=== PATIENT | male | born 1945 | race Asian ===

== ENCOUNTER 2016-08-27 07:05 | Inpatient (IN) | payer BC ==
[2016-08-27] MEDS ORDERED: PROPOFOL 100 ML ONE (07:23)
--- NOTE | 2016-08-27 07:27 | PDOC ---
History of Present Illness - General Chief Complaint: Cardiac Arrest Stated Complaint: CARDIAC ARREST Time Seen by Provider: 08/27/16 07:16 Past History - Past Medical History Allergies/Adverse Reactions: Allergies Allergy/AdvReac Type Severity Reaction Status Date / Time No Known Drug Allergies Allergy Verified 07/24/13 05:55 Home Medications: Ambulatory Orders Amlodipine Besylate [Norvasc -] 5 mg PO BID 07/22/13 Zolpidem Tartrate [Ambien] 10 mg PO HS 07/22/13 Insulin (Levemir) [Levemir Vial -] 16 unit SQ ACBK 05/24/15 Oxycodone HCl/Acetaminophen [Percocet 5-325 mg Tablet] 1 tab PO Q6H 05/24/15 Risperidone [Risperdal -] 0.25 mg PO HS 05/24/15 Lisinopril 10 mg PO DAILY 05/25/15 Pravastatin Sodium [Pravachol -] 40 mg PO DAILY 05/25/15 Repaglinide [Prandin] 1 mg PO AC 05/25/15 Aspirin Coated [Ecotrin -] 81 mg PO DAILY #30 tablet.ec 05/27/15 Carvedilol [Coreg -] 6.25 mg PO BID #0 05/27/15 Glimepiride [Amaryl -] 2 mg PO DAILY #0 05/27/15 Pantoprazole Sodium [Protonix -] 40 mg PO DAILY #0 05/27/15 Diabetes: Yes GI Disorders: Yes (GERD, GI bleed) HTN: Yes - Surgical History Abdominal Surgery: Yes (gastrectomy) - Psycho/Social/Smoking Cessation Hx Anxiety: No Suicidal Ideation: No Smoking History: Never smoked Have you smoked in the past 12 months: No Hx Alcohol Use: No Substance Use Type: None *Physical Exam - Vital Signs Last Vital Signs Temp Pulse Resp BP Pulse Ox 60 13 91 L 08/27/16 07:05 08/27/16 07:05 08/27/16 07:05
[2016-08-27] MEDS ORDERED: PROPOFOL 200 MG/20 ML VIAL IVPUSH ONE (07:36)
[2016-08-27] MEDS ORDERED: PROPOFOL 100 ML IVPB SCH (07:45)
[2016-08-27 07:46] LABS: ARTERIAL BLD GAS O2 SATURATION 99.7 % (90-98.9); ARTERIAL BLOOD GAS BASE EXCESS -5.6 meq/l (-2-2); ARTERIAL BLOOD GAS HCO3 17.5 meq/L (22-26); ARTERIAL BLOOD GAS pH 7.41 (7.35-7.45)
--- NOTE | 2016-08-27 07:46 | PDOC ---
History of Present Illness - General History Source: EMS, Family, Spouse Exam Limitations: Intubated <Steffi Lopez - Last Filed: 08/27/16 11:45> <Barbra Montiel - Last Filed: 08/27/16 12:17> - General Chief Complaint: Cardiac Arrest Stated Complaint: CARDIAC ARREST Time Seen by Provider: 08/27/16 07:16 Past History - Past Medical History Diabetes: Yes GI Disorders: Yes (GERD, GI bleed) HTN: Yes - Surgical History Abdominal Surgery: Yes (gastrectomy) - Psycho/Social/Smoking Cessation Hx Anxiety: No Suicidal Ideation: No Smoking History: Never smoked Have you smoked in the past 12 months: No Hx Alcohol Use: No Substance Use Type: None <Steffi Lopez Last Filed: 08/27/16 11:45> <Barbra Montiel - Last Filed: 08/27/16 12:17> - Past Medical History Allergies/Adverse Reactions: Allergies Allergy/AdvReac Type Severity Reaction Status Date / Time No Known Drug Allergies Allergy Verified 07/24/13 05:55 Home Medications: Ambulatory Orders Oxycodone HCl/Acetaminophen [Percocet 5-325 mg Tablet] 1 tab PO Q6H 05/24/15 Pantoprazole Sodium [Protonix -] 40 mg PO DAILY #0 05/27/15 Carvedilol [Coreg -] 12.5 mg PO BID 08/27/16 Insulin Lispro [Humalog] 1 - 2 unit SQ ASDIR 08/27/16 Prednisone [Deltasone -] 20 mg PO DAILY 08/27/16 Review of Systems - Review of Systems Able to Perform ROS?: No (pt intubated) <Steffi Lopez Last Filed: 08/27/16 11:45> *Physical Exam - Physical Exam HEENT: negative: Scleral Icterus (R), Scleral Icterus (L) Respiratory/Chest: positive: Lungs Clear, Normal Breath Sounds Cardiovascular: positive: Regular Rate, S1, S2 Gastrointestinal/Abdominal: positive: Soft. negative: Distended, Mass Extremity: positive: Other (s/p L BKA) Integumentary: positive: Dry, Warm <Tanika LopezVanessa Last Filed: 08/27/16 11:45> - Vital Signs Last Vital Signs Temp Pulse Resp BP Pulse Ox 96.0 F L 63 12 108/67 100 08/27/16 11:21 08/27/16 11:21 08/27/16 11:21 08/27/16 11:21 08/27/16 11:21 ED Treatment Course - LABORATORY CBC & Chemistry Diagram: 08/27/16 08:20 08/27/16 07:30 <Steffi Lopez - Last Filed: 08/27/16 11:45> - LABORATORY CBC & Chemistry Diagram: 08/27/16 08:20 08/27/16 07:30 <Barbra Montiel - Last Filed: 08/27/16 12:17> - ADDITIONAL ORDERS Additional order review: Laboratory Results 08/27/16 08/27/16 08/27/16 07:42 07:30 07:30 INR PTT (Actin FS) Puncture Site Right radial ABG pH 7.41 ABG pCO2 at Pt Temp 28.0 L ABG pO2 at Pt Temp 538.0 H* ABG HCO3 17.5 L ABG O2 Sat (Measured) 99.7 H* ABG O2 Content 15.4 ABG Base Excess -5.6 L Nico Test Positive O2 Delivery Device Vent Oxygen Flow Rate 100% Vent Mode A/c Vent Rate 12 Mechanical Rate Yes PEEP 5.0 Pressure Support Vent 350 Sodium 132 L Potassium 4.6 Chloride 99 Carbon Dioxide 21 Anion Gap 12 BUN 77 H D Creatinine 1.9 H Creat Clearance w eGFR 35.02 POC Glucometer Random Glucose 179 H D Lactic Acid Calcium 8.0 L Total Bilirubin 0.7 D AST 224 H D ALT 219 H D Alkaline Phosphatase 173 H D Creatine Kinase 1895 H D Creatine Kinase Index 1.3 CK-MB (CK-2) 24.905 H Troponin I 0.04 D B-Natriuretic Peptide Cancelled 32859.76 H Total Protein 6.3 L Albumin 2.8 L Lipase 74 08/27/16 08/27/16 08/27/16 07:30 07:30 07:12 INR 1.28 H PTT (Actin FS) 31.9 Puncture Site ABG pH ABG pCO2 at Pt Temp ABG pO2 at Pt Temp ABG HCO3 ABG O2 Sat (Measured) ABG O2 Content ABG Base Excess Nico Test O2 Delivery Device Oxygen Flow Rate Vent Mode Vent Rate Mechanical Rate PEEP Pressure Support Vent Sodium Potassium Chloride Carbon Dioxide Anion Gap BUN Creatinine Creat Clearance w eGFR POC Glucometer 130.42633 Random Glucose Lactic Acid 1.175 Calcium Total Bilirubin AST ALT Alkaline Phosphatase Creatine Kinase Creatine Kinase Index CK-MB (CK-2) Troponin I B-Natriuretic Peptide Total Protein Albumin Lipase 08/27/16 08/27/16 08/27/16 08:20 07:30 07:12 RBC 4.49 4.61 D MCV 75.2 L 73.9 L MCHC 30.5 L 31.8 L RDW 16.9 H 17.0 H D MPV 10.6 D 7.3 L D Neutrophils % Y 58.0 Lymphocytes % Y 22.0 D Monocytes % 6.0 POC Glucometer 130.86537 - Medications Given in the ED: ED Medications Discontinued Medications Generic Name Dose Route Start Last Admin Trade Name Freq PRN Reason Stop Dose Admin Fentanyl 100 mcg 08/27/16 07:46 08/27/16 07:55 Sublimaze Injection - IVPUSH 08/27/16 07:47 100 mcg ONCE ONE Administration Vancomycin HCl 1,000 mg/ 250 mls @ 250 mls/hr 08/27/16 08:25 08/27/16 09:08 Dextrose IVPB 08/27/16 09:24 250 mls/hr ONCE ONE Administration Protocol Pantoprazole Sodium 40 mg/ 100 mls @ 200 mls/hr 08/27/16 10:45 08/27/16 11:10 Sodium Chloride IVPB 200 mls/hr DAILY ALEXEI Administration Piperacillin Sod/Tazobactam Sod 3.375 gm 08/27/16 08:26 08/27/16 08:38 Zosyn 3.375gm Ivpb (Pre-Docked) IV 08/27/16 08:27 3.375 gm ONCE ONE Administration Protocol Propofol 40,000 mcg 08/27/16 07:36 08/27/16 07:24 Diprivan - IVPUSH 08/27/16 07:37 40,000 mcg ONCE ONE Administration Medical Decision Making <Steffi Lopez - Last Filed: 08/27/16 11:45> <Barbra Montiel - Last Filed: 08/27/16 12:17> - Medical Decision Making 08/27/16 07:38 71-year-old male, history of hypertension, diabetes, CHF, BIB EMS for cardiac arrest w/ intubation in the field. reports that patient appeared well when he went to bed at midnight but around 6am today when went to check on pt, pt felt cold to the touch and was unresponsive. At that point, called EMS. As per EMT, PEA on cardiac rhythm, was able to get pulse after CPR only, no meds given. Patient currently intubated. Family reports that patient was admitted to [facility] approximately 07/22 and discharged 2 weeks agofor pericardial effusion, status post pericardial window. Patient was started on Lasix upon discharge, but meds since discontinued by PMD 3 days ago, as MD thought patient was on too many medications as per family. states since pt has been discharged from [facility], has been weak and anorexic. See exam S/p cardiac arrest w/ PEA on rhythm, s/p ROSC w/ CPR in field, currently intubated w/ respiratory team at bedside Sating 91% on monitor w/ BP of 179/118 EKG w/ NSR w/ LVH Bedside US performed w/ Dr Lara demonstrating good cardiac activity w/ no s/o pericardial effusion -ekg/cxr/labs/echo to evaluate cause of arrest -admit to ICU, no pmd/cards on staff 08/27/16 08:10 Propofol started in ED secondary to patient waking up but was discontinued as pressure dropped to 80s over 60s, but improved approximately 5 minutes after bolus was given. Will switch to fentanyl drip as per ED attending 08/27/16 08:12 08/27/16 08:35 08/27/16 09:47 Elevated LFTs w/ plt of 14, new based on old labs. Possibly 2/2 shock. BNP >19K , trop neg. Will c/w cards and contact unit/hospitalist for admission. Will contact [facility] [place] for record from recent admission 08/27/16 10:03 Contacted [facility] and spoke to PA in ED who reported that pt was admitted for pericardial effusion on 07/21, s/p pericardial window, w/ no e/o malignancy or infection on fluid analysis. LFTs including platelets were wnl. Cr was 2. Was discharged 08/13 on prednisone, colchicine and lasix. of note, pt's lasix was discontinued 3 days ago by outside PMD in the B[facility] 08/27/16 10:21 Pt admitted to the unit and case d/w Dr Castro who recommends holding off on lasix currently 08/27/16 10:22 08/27/16 11:45 As per ED attg, pt appears to bear down w/ palpation of abd, rec CT a/p 08/27/16 11:47 (Steffi Lopez) *DC/Admit/Observation/Transfer - Discharge Dispostion Admit: Yes <Steffi Lopez - Last Filed: 08/27/16 11:45> <Barbra Montiel - Last Filed: 08/27/16 12:17> Diagnosis at time of Disposition: Cardiac arrest, Transaminitis, Acute kidney injury CHF (congestive heart failure) Qualifiers: Congestive heart failure type: unspecified congestive heart failure type Congestive heart failure chronicity: unspecified congestive heart failure chronicity Qualified Code(s): I50.9 - Heart failure, unspecified - Discharge Dispostion Condition at time of disposition: Guarded - Referrals - Attestations Physician Attestion: I independently examined and evaluated this patient in conjunction with NABILA Lopez , mid-level practitioner. I reviewed the case and agree with the mid-level practitioner's assessment, diagnosis and disposition. Patient brought in by EMS s/p cardiac arrest with ROSC. History of recent pericardial window at [facility], no prior cardiac history. Initial VS with hypertension, hypothermia. Initially coughing on the vent. Went hypotensive with initial bolus of propofol, so the sedation was changed to fentanyl with improvement in BP. Lungs clear B/L (intubated by EMS). Unable to assess for abdominal tenderness, but patient appears to be guarding. Labs show transaminitis, likely due to cardiac arrest. BNP elevated. CXR with ETT in place. (Barbra Montiel)
[2016-08-27 07:47] LABS: ALLENS TEST POSITIVE; ART PUNCT SITE RIGHT RADIAL; LPM/O2% 100%; MECH. VENT. YES; PT. ON O2? YES; TYPE OF O2 VENT; VENT RATE 12; VT/PRESS 350
[2016-08-27] MEDS: FENTANYL INJECTION 500 MCG in DEXTROSE 5%-WATER - 90 ML IJ SCH ×3 (07:56→14:41)
[2016-08-27 08:15] LABS: INR 1.28 (0.82-1.09); PROTHROMBIN TIME (PATIENT) 14.1 SEC (9.98-11.88)
[2016-08-27 08:17] LABS: MCH 23.5 pg (25.7-33.7); MCHC 31.8 g/dl (32.0-35.9); MEAN CELL VOLUME 73.9 fl (80-96); MEAN PLT VOLUME 7.3 fl (7.5-11.1); WHITE BLOOD COUNT 2.6 K/mm3 (4.0-10.0)
[2016-08-27 08:18] LABS: ACTIVATED PTT 31.9 SECONDS (26.9-34.4)
[2016-08-27] MEDS ORDERED: VANCOMYCIN 1,000 MG in DEXTROSE 5%-WATER - 250 ML IVPB ONE (08:25)
[2016-08-27] MEDS ORDERED: PIPERACILLIN/TAZOB 3.375 GM/50 ML PRE-DOCKED IV ONE (08:26)
[2016-08-27 08:29] LABS: PLATELET COUNT 14 K/MM3 (134-434)
[2016-08-27] MEDS ORDERED: VANCOMYCIN 1 GRAM (PRE-DOCKED) 250 ML IVPB ONE (08:38)
[2016-08-27] MEDS ORDERED: PIPERACILLIN/TAZOB 3.375 GM 50 ML IVPB ONE (08:38)
[2016-08-27 08:47] LABS: ALBUMIN 2.8 g/dl (3.4-5.0); BILIRUBIN,TOTAL 0.7 mg/dL (0.2-1.0); CREATININE 1.9 mg/dL (0.7-1.3); TOT PROT 6.3 g/dl (6.4-8.2)
[2016-08-27 09:00] LABS: MCHC 30.5 g/dl (32.0-35.9); MEAN CELL VOLUME 75.2 fl (80-96); MEAN PLT VOLUME 10.6 fl (7.5-11.1); RDW 16.9 % (11.9-15.9); WHITE BLOOD COUNT 2.3 K/mm3 (4.0-10.0)
[2016-08-27 09:03] LABS: PLATELET COUNT 16 K/MM3 (134-434)
[2016-08-27 09:23] LABS: TROPONIN I 0.04 ng/ml (0.00-0.05)
--- NOTE | 2016-08-27 10:44 | HP ---
PCP: Oni Russell CHIEF COMPLAINT: Unresponsive HISTORY OF PRESENT ILLNESS: This is a 71-year-old man who was brought in to the ER after his found him unresponsive. She reported that he appeared well last night around midnight. This morning around 6am, he was unresponsive and cold. When EMS arrived, he was noted to have PEA. CPR was started, he was intubated, and his pulse returned. He had been admitted at [facility] on 07/21/16 with a pericardial effusion. He underwent pericardial window and there was no evidence of malignancy or infection. He was discharged on 08/13/16 on prednisone, Colchicine and Lasix. He has been weak and not eating well since discharge. Lasix was discontinued 3 days ago by his PCP. PAST MEDICAL HISTORY Hypertension Type 2 diabetes mellitus Kidney stones Pericardial effusion PAST SURGICAL HISTORY Left BKA Stomach surgery secondary to GI bleed Pericardial window Allergies No Known Drug Allergies Allergy (Verified 07/24/13 05:55) HOME MEDICATIONS 3 Medication Instructions Recorded Oxycodone HCl/Acetaminophen 1 tab PO Q6H 05/24/15 [Percocet 5-325 mg Tablet] Pantoprazole Sodium [Protonix -] 40 mg PO DAILY #0 05/27/15 Carvedilol [Coreg -] 12.5 mg PO BID 08/27/16 Insulin Lispro [Humalog] 1 - 2 unit SQ ASDIR 08/27/16 Prednisone [Deltasone -] 20 mg PO DAILY 08/27/16 Social History: Smoking: No Alcohol: No Drugs: No Recent Travel: No Family History: (+) diabetes REVIEW OF SYSTEMS Unable to obtain PHYSICAL EXAMINATION Vital Signs - 24 hr 08/27/16 08/27/16 08/27/16 07:05 07:10 07:20 Temperature 93.6 F L Pulse Rate 63 Pulse Rate [ 59 L 61 Apical] Respiratory 12 12 12 Rate Blood Pressure 171/94 Blood Pressure 93/68 87/67 [Right Arm] O2 Sat by Pulse 100 100 100 Oximetry (%) 08/27/16 08/27/16 08/27/16 07:30 07:50 07:54 Temperature Pulse Rate Pulse Rate [ 56 L 61 Apical] Respiratory 12 12 22 Rate Blood Pressure Blood Pressure 74/67 117/88 [Right Arm] O2 Sat by Pulse 100 100 Oximetry (%) 03/25/17 03/25/17 03/25/17 07:55 08:00 08:30 Temperature Pulse Rate 65 Pulse Rate [ 63 55 L Apical] Respiratory 12 12 Rate Blood Pressure Blood Pressure 152/95 81/58 [Right Arm] O2 Sat by Pulse 100 100 100 Oximetry (%) 08/27/16 08/27/16 08/27/16 09:00 09:16 09:17 Temperature 93.8 F L Pulse Rate Pulse Rate [ 57 L 58 L Apical] Respiratory 12 12 18 Rate Blood Pressure Blood Pressure 108/70 100/70 [Right Arm] O2 Sat by Pulse 100 100 Oximetry (%) 08/27/16 08/27/16 08/27/16 09:37 09:53 10:11 Temperature Pulse Rate Pulse Rate [ 57 L 56 L 56 L Apical] Respiratory 12 12 12 Rate Blood Pressure Blood Pressure 95/66 95/67 94/66 [Right Arm] O2 Sat by Pulse 100 100 100 Oximetry (%) 08/27/16 08/27/16 10:12 10:37 Temperature 94.0 F L Pulse Rate Pulse Rate [ 60 59 L Apical] Respiratory 12 12 Rate Blood Pressure Blood Pressure 110/70 90/63 [Right Arm] O2 Sat by Pulse 100 100 Oximetry (%) GENERAL: Awake, intubated, in no acute distress. HEAD: Normal with no signs of trauma. EYES: Pupils equal, round and reactive to light, sclerae anicteric, conjunctivae clear. EARS, NOSE, THROAT: Ears normal, nares patent, oropharynx clear without exudates. Moist mucous membranes. NECK: Normal range of motion, supple without lymphadenopathy, JVD, or masses. LUNGS: Breath sounds equal, clear to auscultation bilaterally. No wheezes, and no crackles. HEART: Regular rate and rhythm, normal S1 and S2 without murmur, rub or gallop. ABDOMEN: Soft, winces with palpation, not distended, normoactive bowel sounds, no masses, no hepatomegaly, no splenomegaly. MUSCULOSKELETAL: Normal passive range of motion at all joints. s/p left BKA. UPPER EXTREMITIES: 2+ pulses, warm, well-perfused. No cyanosis. No clubbing. No peripheral edema. LOWER EXTREMITIES: 2+ pulses, warm, well-perfused. No calf tenderness. No peripheral edema. s/p left BKA. NEUROLOGICAL: Unable to assess. PSYCHIATRIC: Unable to assess. SKIN: Warm, dry, normal turgor, no rashes or lesions noted, normal capillary refill. Laboratory Results - last 24 hr 08/27/16 08/27/16 08/27/16 07:12 07:30 07:30 WBC 2.6 L D RBC 4.61 D Hgb 10.9 L Hct 34.1 L MCV 73.9 L MCHC 31.8 L RDW 17.0 H D Plt Count 14 L* D MPV 7.3 L D Neutrophils % Y Lymphocytes % Y INR PTT (Actin FS) Puncture Site ABG pH ABG pCO2 at Pt Temp ABG pO2 at Pt Temp ABG HCO3 ABG O2 Sat (Measured) ABG O2 Content ABG Base Excess Nico Test O2 Delivery Device Oxygen Flow Rate Vent Mode Vent Rate Mechanical Rate PEEP Pressure Support Vent Sodium Potassium Chloride Carbon Dioxide Anion Gap BUN Creatinine Creat Clearance w eGFR POC Glucometer 130.04054 Random Glucose Lactic Acid 1.175 Calcium Total Bilirubin AST ALT Alkaline Phosphatase Creatine Kinase Creatine Kinase Index CK-MB (CK-2) Troponin I B-Natriuretic Peptide Total Protein Albumin Lipase 08/27/16 08/27/16 08/27/16 07:30 07:30 07:30 WBC RBC Hgb Hct MCV MCHC RDW Plt Count MPV Neutrophils % Lymphocytes % INR 1.28 H PTT (Actin FS) 31.9 Puncture Site ABG pH ABG pCO2 at Pt Temp ABG pO2 at Pt Temp ABG HCO3 ABG O2 Sat (Measured) ABG O2 Content ABG Base Excess Nico Test O2 Delivery Device Oxygen Flow Rate Vent Mode Vent Rate Mechanical Rate PEEP Pressure Support Vent Sodium 132 L Potassium 4.6 Chloride 99 Carbon Dioxide 21 Anion Gap 12 BUN 77 H D Creatinine 1.9 H Creat Clearance w eGFR 35.02 POC Glucometer Random Glucose 179 H D Lactic Acid Calcium 8.0 L Total Bilirubin 0.7 D AST 224 H D ALT 219 H D Alkaline Phosphatase 173 H D Creatine Kinase 1895 H D Creatine Kinase Index 1.3 CK-MB (CK-2) 24.905 H Troponin I 0.04 D B-Natriuretic Peptide 66119.76 H Cancelled Total Protein 6.3 L Albumin 2.8 L Lipase 74 08/27/16 08/27/16 07:42 08:20 WBC 2.3 L RBC 4.49 Hgb 10.3 L Hct 33.7 L MCV 75.2 L MCHC 30.5 L RDW 16.9 H Plt Count 16 L* MPV 10.6 D Neutrophils % Y Lymphocytes % Y INR PTT (Actin FS) Puncture Site Right radial ABG pH 7.41 ABG pCO2 at Pt Temp 28.0 L ABG pO2 at Pt Temp 538.0 H* ABG HCO3 17.5 L ABG O2 Sat (Measured) 99.7 H* ABG O2 Content 15.4 ABG Base Excess -5.6 L Nico Test Positive O2 Delivery Device Vent Oxygen Flow Rate 100% Vent Mode A/c Vent Rate 12 Mechanical Rate Yes PEEP 5.0 Pressure Support Vent 350 Sodium Potassium Chloride Carbon Dioxide Anion Gap BUN Creatinine Creat Clearance w eGFR POC Glucometer Random Glucose Lactic Acid Calcium Total Bilirubin AST ALT Alkaline Phosphatase Creatine Kinase Creatine Kinase Index CK-MB (CK-2) Troponin I B-Natriuretic Peptide Total Protein Albumin Lipase Chest x-ray: ET tube in plce. Lungs clear. EKG: Sinus rhythm, LVH, no ischemic changes. ASSESSMENT/PLAN: This is a 71-year-old man with a history of HTN, type 2 DM, stage 3 CKD, recent pericardial window for pericardial effusion who presents to the ER after being found unresponsive and cold in his bed. EMS found him in PEA and CPR was started and he was intubated. He is awake on the vent. He has been hypotensive, temp was 93.6. He was found to have WBC 2.6, Hgb 10.9, platelets 14, lactic acid 1.175, Na 132, BUN 77, creatinine 1.9, AST 224, ALT 219, alk phos 173, CK 1895, CK-MB 24.9, troponin 0.04, BNP 22912. He is being admitted now for treatment of an emergent condition. 1. Cardiac arrest with hypotension and hypothermia, possible sepsis - Admit to ICU - Zosyn, Vancomycin given in ER - IV fluid - Blood and urine cultures - Hold Coreg, Lasix - Serial CK, troponin - Echocardiogram - Cardiology, critical care consults 2. Acute hypoxic respiratory failure - Maintain vent support - Pulmonary/critical care consult 3. Pancytopenia - Possibly secondary to sepsis - Consider malignancy given recent pericardial effusion - Monitor CBC 4. Hepatic transaminitis and abdominal tenderness - Possibly secondary to sepsis, biliary disease - CT abdomen and pelvis - Monitor LFTs 5. Hypertension - Hold Coreg, Lasix secondary to hypotension 6. Type 2 diabetes mellitus - Monitor fingersticks 7. Recent pericardial effusion, s/p pericardial window 8. Stage 3 CKD - Creatinine stable Visit type - Emergency Visit Emergency Visit: Yes ED Registration Date: 08/27/16 Care time: The patient presented to the Emergency Department on the above date and was hospitalized for further evaluation of their emergent condition. - New Patient This patient is new to me today: Yes Date on this admission: 08/27/16 - Critical Care Critical Care patient: Yes Total Critical Care Time (in minutes): 60 Critical Care Statement: The care of this patient involved high complexity decision making to prevent further life threatening deterioration of the patient 's condition and/or to evalute & treat vital organ system(s) failure or risk of failure.
[2016-08-27] MEDS ORDERED: PANTOPRAZOLE SODIUM 40 MG in SODIUM CHLORIDE 100 ML IVPB SCH (10:45)
[2016-08-27] MEDS ORDERED: ONDANSETRON 4 MG/2 ML VIAL IVPB PRN (10:45)
[2016-08-27] MEDS ORDERED: ACETAMINOPHEN 650 MG SUPP.RECT PR PRN (10:45)
[2016-08-27 10:53] LABS: PLATELET COMMENT2 NO CLOTTING DETECTED; PLATELET ESTIMATE MARKEDLY DECREASED (NORMAL)
[2016-08-27 10:54] LABS: ANISOCYTOSIS 2+; HYPOCHROMIA 1+; MICROCYTOSIS 1+; POIKILOCYTOSIS 1+; POLYCHROMASIA 1+
[2016-08-27] MEDS ORDERED: PANTOPRAZOLE SODIUM 100 ML IVPB ONE (11:05)
[2016-08-27 11:14] VITALS: BMI 22.1
[2016-08-27] MEDS ORDERED: PNEUMOC 13-VAL CONJ-DIP CRM/PF 0.5 ML DISP.SYRIN IM ONE (11:14)
[2016-08-27] MEDS ORDERED: PANTOPRAZOLE SODIUM 100 ML IVPB SCH (11:36)
[2016-08-27] MEDS ORDERED: SODIUM CHLORIDE 500 ML IV STA (12:19)
[2016-08-27] MEDS ORDERED: SODIUM CHLORIDE 1,000 ML IV STA (12:30)
[2016-08-27] MEDS ORDERED: LIDOCAINE HCL 2% JELLY 10 ML CARTRIDGE ONE (14:39)
[2016-08-27 14:40] VITALS: TEMP 99
[2016-08-27 14:56] VITALS: BP 130/79
--- NOTE | 2016-08-27 15:02 | CON.CARD ---
Consult Consult Specialty:: Cardiology Referred by:: Hospitalist Reason for Consultation:: Cardiac evaluation - History of Present Illness Chief Complaint: Post cardiac arrest (PEA) History of Present Illness: Patient is a 71 year old [place] gentleman with underlying history of diabetes mellitus, HTN, PAD status post left BKA, recent hospitalization at [facility] with pericardia effusion for which he had pericardial window and was discharged on 08/13/16 on Prednisone, Colchicine and Lasix. He was seen by his early this morning unresponsive. He was seen at midnight last night and appeared his usual self with weakness. He was found cold and unresponsive this morning and EMS was called. Upon arrival, he was found to be in PEA. CPR was started and patient was intubated. He regained his pulse and was brought to ED for further evaluation. His does not report any complaints of chest pain , shortness of breath or palpitations. She does not report her having fever or chills, but she states that he complained of abdominal discomfort intermittently. He is being admitted to ICU for further management. Blood work reveals low WBC and significant thrombocytopenia and abnormal LFTs His PCP is Dr. Russell in [place] - History Source History Provided By: Family Member Limitations to Obtaining History: Intubated - Past Medical History Cardio/Vascular: Yes: HTN Gastrointestinal: Yes: GI Bleed Endocrine: Yes: Diabetes Mellitus - Past Surgical History Past Surgical History: Yes: Amputation, Hernia Repair Additional Surgical History: GI surgery due to bleed many years ago - Alcohol/Substance Use Hx Alcohol Use: Yes (in the past) History of Substance Use: reports: None - Smoking History Smoking history: Former smoker Have you smoked in the past 12 months: No Home Medications - Allergies Allergies/Adverse Reactions: Allergies Allergy/AdvReac Type Severity Reaction Status Date / Time No Known Drug Allergies Allergy Verified 07/24/13 05:55 - Home Medications Home Medications: Ambulatory Orders Oxycodone HCl/Acetaminophen [Percocet 5-325 mg Tablet] 1 tab PO Q6H 05/24/15 Pantoprazole Sodium [Protonix -] 40 mg PO DAILY #0 05/27/15 Carvedilol [Coreg -] 12.5 mg PO BID 08/27/16 Insulin Lispro [Humalog] 1 - 2 unit SQ ASDIR 08/27/16 Prednisone [Deltasone -] 20 mg PO DAILY 08/27/16 Family Disease History - Family Disease History Family Disease History: Diabetes: Father, Mother Review of Systems Unable to obtain ROS, reason: Unable to obtain Vital Signs: Vital Signs Temperature 99.0 F 08/27/16 14:40 Pulse Rate 72 08/27/16 14:44 Respiratory Rate 12 08/27/16 14:44 Blood Pressure 117/64 08/27/16 14:44 O2 Sat by Pulse Oximetry (%) 100 08/27/16 14:44 Respiratory: Yes: Diminished Gastrointestinal: Yes: Normal Bowel Sounds, Soft, Tenderness (Possible) Cardiovascular: Yes: Regular Rate and Rhythm JVD: No Carotid Bruit: No PMI: Non-Displaced Heart Sounds: Yes: S1, S2 Extremities: Yes: Amputation Edema: No - Other Data Labs, Other Data: INR, PTT INR 1.28 (0.82-1.09) H 08/27/16 07:30 Laboratory Results - last 24 hr 08/27/16 08/27/16 08/27/16 07:12 07:30 07:30 WBC 2.6 L D RBC 4.61 D Hgb 10.9 L Hct 34.1 L MCV 73.9 L MCHC 31.8 L RDW 17.0 H D Plt Count 14 L* D MPV 7.3 L D Neutrophils % 58.0 Lymphocytes % 22.0 D Monocytes % 6.0 Band Neutrophils 4.0 D Platelet Estimate Markedly decreased Platelet Comment No clotting detected Polychromasia 1+ Hypochromic-Microcytic 1+ Poikilocytosis 1+ Anisocytosis 2+ Microcytosis 1+ Macrocytosis 2+ INR PTT (Actin FS) Puncture Site ABG pH ABG pCO2 at Pt Temp ABG pO2 at Pt Temp ABG HCO3 ABG O2 Sat (Measured) ABG O2 Content ABG Base Excess Nico Test O2 Delivery Device Oxygen Flow Rate Vent Mode Vent Rate Mechanical Rate PEEP Pressure Support Vent Sodium Potassium Chloride Carbon Dioxide Anion Gap BUN Creatinine Creat Clearance w eGFR POC Glucometer 130.36590 Random Glucose Lactic Acid 1.175 Calcium Total Bilirubin AST ALT Alkaline Phosphatase Creatine Kinase Creatine Kinase Index CK-MB (CK-2) Troponin I B-Natriuretic Peptide Total Protein Albumin Lipase 08/27/16 08/27/16 08/27/16 07:30 07:30 07:30 WBC RBC Hgb Hct MCV MCHC RDW Plt Count MPV Neutrophils % Lymphocytes % Monocytes % Band Neutrophils Platelet Estimate Platelet Comment Polychromasia Hypochromic-Microcytic Poikilocytosis Anisocytosis Microcytosis Macrocytosis INR 1.28 H PTT (Actin FS) 31.9 Puncture Site ABG pH ABG pCO2 at Pt Temp ABG pO2 at Pt Temp ABG HCO3 ABG O2 Sat (Measured) ABG O2 Content ABG Base Excess Nico Test O2 Delivery Device Oxygen Flow Rate Vent Mode Vent Rate Mechanical Rate PEEP Pressure Support Vent Sodium 132 L Potassium 4.6 Chloride 99 Carbon Dioxide 21 Anion Gap 12 BUN 77 H D Creatinine 1.9 H Creat Clearance w eGFR 35.02 POC Glucometer Random Glucose 179 H D Lactic Acid Calcium 8.0 L Total Bilirubin 0.7 D AST 224 H D ALT 219 H D Alkaline Phosphatase 173 H D Creatine Kinase 1895 H D Creatine Kinase Index 1.3 CK-MB (CK-2) 24.905 H Troponin I 0.04 D B-Natriuretic Peptide 84004.76 H Cancelled Total Protein 6.3 L Albumin 2.8 L Lipase 74 08/27/16 08/27/16 07:42 08:20 WBC 2.3 L RBC 4.49 Hgb 10.3 L Hct 33.7 L MCV 75.2 L MCHC 30.5 L RDW 16.9 H Plt Count 16 L* MPV 10.6 D Neutrophils % Y Lymphocytes % Y Monocytes % Band Neutrophils Platelet Estimate Platelet Comment Polychromasia Hypochromic-Microcytic Poikilocytosis Anisocytosis Microcytosis Macrocytosis INR PTT (Actin FS) Puncture Site Right radial ABG pH 7.41 ABG pCO2 at Pt Temp 28.0 L ABG pO2 at Pt Temp 538.0 H* ABG HCO3 17.5 L ABG O2 Sat (Measured) 99.7 H* ABG O2 Content 15.4 ABG Base Excess -5.6 L Nico Test Positive O2 Delivery Device Vent Oxygen Flow Rate 100% Vent Mode A/c Vent Rate 12 Mechanical Rate Yes PEEP 5.0 Pressure Support Vent 350 Sodium Potassium Chloride Carbon Dioxide Anion Gap BUN Creatinine Creat Clearance w eGFR POC Glucometer Random Glucose Lactic Acid Calcium Total Bilirubin AST ALT Alkaline Phosphatase Creatine Kinase Creatine Kinase Index CK-MB (CK-2) Troponin I B-Natriuretic Peptide Total Protein Albumin Lipase Sinus rhythm with nonspecific ST-T abnormalities Echo: Pending Imaging - Results Chest X-ray: Report Reviewed (Unremarkable) Cat Scan: Pending (Chest and abdomen) EKG: Report Reviewed Problem List - Problems (1) Acute kidney injury Code(s): N17.9 - ACUTE KIDNEY FAILURE, UNSPECIFIED (2) Cardiac arrest Code(s): I46.9 - CARDIAC ARREST, CAUSE UNSPECIFIED (3) Diabetes mellitus Code(s): E11.9 - TYPE 2 DIABETES MELLITUS WITHOUT COMPLICATIONS (4) Pericardial effusion Code(s): I31.3 - PERICARDIAL EFFUSION (NONINFLAMMATORY) (5) Status post pericardial operation Code(s): Z98.890 - OTHER SPECIFIED POSTPROCEDURAL STATES (6) HTN (hypertension) Code(s): I10 - ESSENTIAL (PRIMARY) HYPERTENSION Qualifiers: Hypertension type: essential hypertension Qualified Code(s): I10 - Essential (primary) hypertension Assessment/Plan 1. Post cardiac arrest - PEA, etiology to be determined, rule out sepsis 2. History of recent pericardial window for pericardial effusion 3. Diabetes mellitus 4. PAD post BKA 5. Acute on CKD 6. Respiratory failure requitng mechanical ventilation 7. Thrombocytopenia, etiology to be determined 8. Abnormal LFT - ? hepatorenal due to sepsis PLAN: 1. ICU admission 2. Mechanical ventilation 3. Transthoracic echocardiography to assess LV function and to assess pericardium 4. Cardiac medications are on hold until further instructions 5. Serial cardiac enzymes 6. Recommend chest and abdominal CT 7. Monitor LFT 8. Broad spectrum antibiotics and cage culture 9. Monitor CBC 10. Obtain records from [facility] Further plans are to follow. Discussed status with his by bedside Critical Derik Castro MD
[2016-08-27 15:07] LABS: URINE APPEARANCE CLEAR; URINE BILIRUBIN NEGATIVE (NEGATIVE); URINE BLOOD 3+ (NEGATIVE); URINE COLOR YELLOW; URINE GLUCOSE (UA) NEGATIVE (NEGATIVE); URINE KETONE NEGATIVE (NEGATIVE); URINE LEUK ESTERASE NEGATIVE (NEGATIVE); URINE NITRITE NEGATIVE (NEGATIVE); URINE PROTEIN 2+ (NEGATIVE); URINE UROBILINOGEN NEGATIVE E.U./dl (0.2-1.0)
[2016-08-27 15:10] LABS: CALCIUM OXALATE CRYSTALS RARE /hpf (NONE SEEN); URINE BACTERIA RARE /hpf (NONE SEEN); URINE MUCUS RARE; URINE RBC 28 /hpf (0-3); URINE WBC 5 /hpf (3-5); YEAST RARE
[2016-08-27] MEDS ORDERED: DEXTROSE 50%-WATER 50 ML VIAL ONE (16:12)
[2016-08-27] MEDS ORDERED: DEXTROSE 50%-WATER 50 ML VIAL IVPUSH ONE (16:34)
[2016-08-27 16:50] LABS: ALBUMIN 2.8 g/dl (3.4-5.0); BILIRUBIN,TOTAL 0.8 mg/dL (0.2-1.0); CALCIUM 8.4 mg/dL (8.5-10.1); CREATININE 2.2 mg/dL (0.7-1.3); TOT PROT 6.4 g/dl (6.4-8.2)
[2016-08-27 17:08] LABS: TROPONIN I 0.08 ng/ml (0.00-0.05)
[2016-08-27 17:50] VITALS: PULSE 69
--- NOTE | 2016-08-27 18:23 | EKG ---
Test Reason : Blood Pressure : / mmHG Vent. Rate : 065 BPM Atrial Rate : 065 BPM P-R Int : 172 ms QRS Dur : 084 ms QT Int : 448 ms P-R-T Axes : 076 069 250 degrees QTc Int : 465 ms NORMAL SINUS RHYTHM LEFT VENTRICULAR HYPERTROPHY WITH REPOLARIZATION ABNORMALITY ABNORMAL ECG WHEN COMPARED WITH ECG OF 24-MAY-2015 15:34, T WAVE INVERSION NOW EVIDENT IN INFERIOR LEADS T WAVE INVERSION NOW EVIDENT IN LATERAL LEADS Confirmed by MARCELO TRAVIS MD ([id number]) on 08/27/2016 6:22:59 PM Referred By: Confirmed By:MARCELO TRAVIS MD
[2016-08-27] MEDS ORDERED: DEXTROSE 10%-WATER - 1,000 ML IV SCH (18:45)
[2016-08-27] MEDS ORDERED: MUPIROCIN 2% TOPICAL OINTMENT FOR DECOLONIZATION NS SCH (22:00)
[2016-08-27] MEDS ORDERED: CHLORHEXIDINE GLUCONATE 4% CLEANSER FOR DECOLONIZATION TP SCH (22:00)
--- NOTE | 2016-08-28 09:55 | DS ---
Physical Exam: SUBJECTIVE: Patient seen and examined OBJECTIVE: Vital Signs Period Temp Pulse Resp BP Sys/Aceves Pulse Ox Last 24 Hr 95.5 F-99.0 F 59-74 12-29 63-130/51-79 100-100 PHYSICAL EXAM GENERAL: The patient is awake, alert, and fully oriented, in no acute distress. HEAD: Normal with no signs of trauma. EYES: PERRL, extraocular movements intact, sclera anicteric, conjunctiva clear. ENT: Ears normal, nares patent, oropharynx clear without exudates, moist mucous membranes. NECK: Trachea midline, full range of motion, supple. LUNGS: Breath sounds equal, clear to auscultation bilaterally, no wheezes, no crackles, no accessory muscle use. HEART: Regular rate and rhythm, S1, S2 without murmur, rub or gallop. ABDOMEN: Soft, nontender, nondistended, normoactive bowel sounds, no guarding, no rebound, no hepatosplenomegaly, no masses. EXTREMITIES: 2+ pulses, warm, well-perfused, no edema. NEUROLOGICAL: Cranial nerves II through XII grossly intact. Normal speech, gait not observed. PSYCH: Normal mood, normal affect. SKIN: Warm, dry, normal turgor, no rashes or lesions noted. LABS Laboratory Results - last 24 hr 08/27/16 08/27/16 08/27/16 14:15 14:15 15:00 Sodium Potassium Chloride Carbon Dioxide Anion Gap BUN Creatinine Creat Clearance w eGFR POC Glucometer Random Glucose Calcium Total Bilirubin AST ALT Alkaline Phosphatase Creatine Kinase 2523 H D CK-MB (CK-2) CK-MB (CK-2) Rel Index Cancelled Troponin I 0.08 H D Total Protein Albumin Urine Color Yellow Urine Appearance Clear Urine pH 5.0 Ur Specific [place] 1.016 Urine Protein 2+ H Urine Glucose (UA) Negative Urine Ketones Negative Urine Blood 3+ H Urine Nitrite Negative Urine Bilirubin Negative Urine Urobilinogen Negative Ur Leukocyte Esterase Negative Urine RBC 28 Urine WBC 5 Ur Epithelial Cells Rare Calcium Oxalate Crystal Rare Urine Bacteria Rare Urine Mucus Rare Urine Yeast Rare 08/27/16 08/27/16 08/27/16 16:09 16:15 16:15 Sodium 136 Potassium 4.1 Chloride 104 Carbon Dioxide 22 Anion Gap 10 BUN 81 H Creatinine 2.2 H Creat Clearance w eGFR 29.57 POC Glucometer < 50 Random Glucose 25 L* D Calcium 8.4 L Total Bilirubin 0.8 AST 221 H ALT 235 H Alkaline Phosphatase 174 H Creatine Kinase CK-MB (CK-2) 33.702 H Cancelled CK-MB (CK-2) Rel Index Troponin I Total Protein 6.4 Albumin 2.8 L Urine Color Urine Appearance Urine pH Ur Specific [place] Urine Protein Urine Glucose (UA) Urine Ketones Urine Blood Urine Nitrite Urine Bilirubin Urine Urobilinogen Ur Leukocyte Esterase Urine RBC Urine WBC Ur Epithelial Cells Calcium Oxalate Crystal Urine Bacteria Urine Mucus Urine Yeast 08/27/16 08/27/16 17:11 17:59 Sodium Potassium Chloride Carbon Dioxide Anion Gap BUN Creatinine Creat Clearance w eGFR POC Glucometer 191.75169 158.58915 Random Glucose Calcium Total Bilirubin AST ALT Alkaline Phosphatase Creatine Kinase CK-MB (CK-2) CK-MB (CK-2) Rel Index Troponin I Total Protein Albumin Urine Color Urine Appearance Urine pH Ur Specific [place] Urine Protein Urine Glucose (UA) Urine Ketones Urine Blood Urine Nitrite Urine Bilirubin Urine Urobilinogen Ur Leukocyte Esterase Urine RBC Urine WBC Ur Epithelial Cells Calcium Oxalate Crystal Urine Bacteria Urine Mucus Urine Yeast HOSPITAL COURSE: Date of Admission:08/27/16 Date of Discharge: 08/28/16 Discharge Summary Reason For Visit: CARDIAC ARREST Condition: Guarded - Instructions Referrals: Oni Russell [Primary Care Provider] - Disposition: TRANSFER ACUTE CARE/OTHER HOSP - Home Medications Comprehensive Discharge Medication List: Ambulatory Orders Oxycodone HCl/Acetaminophen [Percocet 5-325 mg Tablet] 1 tab PO Q6H 05/24/15 Pantoprazole Sodium [Protonix -] 40 mg PO DAILY #0 05/27/15 Carvedilol [Coreg -] 12.5 mg PO BID 08/27/16 Insulin Lispro [Humalog] 1 - 2 unit SQ ASDIR 08/27/16 Prednisone [Deltasone -] 20 mg PO DAILY 08/27/16
== END 2016-08-27 19:51 | disposition short-term general hospital (02) | DRG 296 ==
LOC: JER 07:05 → JERBED 10:13 → JICU 15:46
PROVIDERS: ADMIT Internal Medicine; ATTEND Internal Medicine
PROC: 5A1935Z Respiratory Ventilation, Less than 24 Consecutive Hours (ICD-10-PCS; principal; 2016-08-27)
DX: I46.9 Cardiac arrest, cause unspecified (principal); J96.01 Acute respiratory failure with hypoxia; N17.9 Acute kidney failure, unspecified; I31.3 Pericardial effusion (noninflammatory); D61.818 Other pancytopenia; I73.89 Other specified peripheral vascular diseases; E11.9 Type 2 diabetes mellitus without complications; I12.9 Hypertensive chronic kidney disease with stage 1 through stage 4 chronic kidney disease, or unspecified chronic kidney disease; N18.3 Chronic kidney disease, stage 3 (moderate); R74.0 Nonspecific elevation of levels of transaminase and lactic acid dehydrogenase [LDH]; K75.89 Other specified inflammatory liver diseases; Z98.890 Other specified postprocedural states; Z87.442 Personal history of urinary calculi; Z89.512 Acquired absence of left leg below knee
CPT/HCPCS: 36415; 36600; 70450-TC; 71010-TC; 71250-TC; 74176-TC; 80053; 81003; 81015; 82550; 82553; 82803; 83605; 83690; 83880; 84484; 85025; 85610; 85730; 87040; 87086; 87186; 93005; 93010; 93306-TC; 99285-25